=== PATIENT | male | born 2000 | race Caucasian/White ===

== ENCOUNTER 2022-01-22 12:00 | Emergency (ER) | payer OTHER ==
[~2022-01-22] VITALS: Ht 172.7 cm; Wt 61.8 kg
[2022-01-22 12:28] VITALS: TEMP 98.2
[2022-01-22 13:45] VITALS: BP 108/64; PULSE 80
== END 2022-01-22 13:45 | disposition home or self-care (01) ==
LOC: COL.ER 12:00
DX: S43.101A Unspecified dislocation of right acromioclavicular joint, initial encounter (principal); S20.20XA Contusion of thorax, unspecified, initial encounter; Y04.8XXA Assault by other bodily force, initial encounter